=== PATIENT | male | born 1960 | race Caucasian/White ===

== ENCOUNTER 2019-02-15 09:56 | Day surgery (SDC) | payer BC ==
[2019-02-15] MEDS ORDERED: LIDOCAINE 4% SOLUTION 50 ML BTL (11:16)
[2019-02-15] MEDS ORDERED: MIDAZOLAM 1 MG/ML 2 ML INJ ×2 (12:46)
[2019-02-15] MEDS ORDERED: FENTAnyl 50 MCG/ML VIAL (12:46)
== END 2019-02-15 13:16 | disposition home or self-care (01) ==
LOC: GIL 09:56
DX: K29.70 Gastritis, unspecified, without bleeding (principal); K25.9 Gastric ulcer, unspecified as acute or chronic, without hemorrhage or perforation; I10 Essential (primary) hypertension
CPT/HCPCS: 43239; 82962; 88305; 88312; 88313